=== PATIENT | male | born 1955 | race Caucasian/White ===

== ENCOUNTER 2022-06-03 08:19 | Inpatient (IN) ==
--- NOTE | 2022-05-13 16:24 | PAT Medication Instructions ---
Medication Instructions Date of Service May 13, 2022 Home Medications aspirin 81 mg chewable tablet 81 mg PO QAM cholecalciferol (vitamin D3) 25 mcg (1,000 unit) tablet (Vitamin D3) 25 mcg PO QAM losartan 100 mg tablet 150 mg PO QAM [id number]-[id number] 250 mg-dha 90 mg-epa 160 nz-yuti-wiyj-zeax capsule (Ocuvite Adult 50 Plus) 1 cap PO QAM ASK your prescriber and surgeon aspirin 81 mg chewable tablet 81 mg PO QAM STOP taking 2 weeks before surgery rblmlmyb-hdc- 250 mg-dha 90 mg-epa 160 ez-tdcl-ctrj-zeax capsule (Ocuvite Adult 50 Plus) 1 cap PO QAM DO NOT take the morning of surgery cholecalciferol (vitamin D3) 25 mcg (1,000 unit) tablet (Vitamin D3) 25 mcg PO QAM losartan 100 mg tablet 150 mg PO QAM Other Notes NOTHING TO EAT OR DRINK AFTER MIDNIGHT. If you have any questions please call us at [phone] or [phone] or [phone] or [phone]
--- NOTE | 2022-05-20 13:20 | Anesthesiology Consultation ---
Date of Service May 20, 2022 Assessment & Plan (1) Encounter for pre-operative examination: COVID screening: Per assessment on 05/20: No known COVID-19 positive contacts or current COVID-19 related symptoms. Travel screen negative. At surgeon discretion if preop Covid testing being done. Chart Review Chart Review: Acceptable Risk for Surgery and Patient seen in Pre Admission Testing Teaching & Discussion Pre-Anesthesia Teaching/Discussion Notes: Instructed NPO after midnight before surgery,except medications with 15 cc of water. Medication instructions provided according to the PAT guidelines. History Surgery Operation Date: 06/03/22 07:45 Proposed Procedures p L3-L5 Decompression and Fusion, Spinal Cord Monitoring - Armani Ahumada, Height/Weight Height: 5 ft 6 in Weight: 117.2 kg Allergies Allergy/AdvReac Type Severity Reaction Status Date / Time No Known Drug Allergies Allergy Verified 05/08/22 13:42 Medications Home Medications Medication Instructions Recorded Confirmed Last Taken aspirin 81 mg chewable tablet 81 mg PO QAM 05/08/22 05/08/22 Unknown cholecalciferol (vitamin D3) 25 25 mcg PO QAM 05/08/22 05/08/22 Unknown mcg (1,000 unit) tablet (Vitamin D3) losartan 100 mg tablet 150 mg PO QAM 05/08/22 05/08/22 Unknown rxahostg-lvo- 250 mg-dha 90 1 cap PO QAM 05/08/22 05/08/22 Unknown mg-epa 160 un-ytpv-scww-zeax capsule (Ocuvite Adult 50 Plus) Past Medical History Medical History History of COVID-19 Dx 08/2021, symptoms at time: headache, fever, cough > resolved Hypertension Exercise / Class Metabolic Activity II 4-5 Yardwork/Stairs/Walk up hill (one FS (no CP, no SOB)) Past Surgical History Surgical History History of total left knee replacement Hx of arthroscopic knee surgery R/L (multiple) Hx of colonoscopy Hx of tonsillectomy Past Anesthesia History No Family Hx of Anesthesia Complications and Other (Heart racing with remote anesthesia emergence) History of PONV No Hx of PONV and No Hx of Motion Sickness Social History Smoking Status: Former smoker Do You Dip or Chew Tobacco: No (only as teenager) Smoking End Date: Quit (only use as teenager) Hx Alcohol Use: Yes Alcohol type: wine alcohol intake frequency: holidays/special occasions only Hx Substance Use: No substance use type: does not use Review of Systems Patient denies chest pain, shortness of breath, dyspnea on exertion, fever, chills, cough, wheezing, palpitations. Physical Exam Vital Signs VITALS BP 131/86 P 87 TEMP 98.4 SP02 95%RA RESP 16 PHYSICAL Full cervical extension range of motion. Full TMJ range of motion. TMD 4 finger breaths Mallampati Score 2 Dentition: intact, + crowns Lungs: clear throughout to auscultation Cardiac: regular rate and rhythm, no murmurs noted Spine: normal Carotid arteries: negative bruit Extremities: no edema Thick neck Lab Results Anesthesia Preop Results Results Anesthesia Widget: WBC 10.41 K/ul (4.8-10.8) 05/20/22 Hgb 16.3 g/dl (14.0-18.0) 05/20/22 Hct 47.0 % (40.1-51.0) 05/20/22 Plt 386 K/uL (130-400) 05/20/22 Na 138 mmol/L (136-145) 05/20/22 K 3.7 mmol/L (3.5-5.1) 05/20/22 Cl 99 mmol/L (98-107) 05/20/22 CO2 29 mmol/L (21-32) 05/20/22 BUN 16 mg/dl (6-23) 05/20/22 Creat 0.90 mg/dl (0.6-1.4) 05/20/22 Glucose Level 84 mg/dl (70-99(Fasting)) 05/20/22 PT 11.1 Seconds (9.0-12.0) 05/20/22 PTT 31.0 Seconds (21.0-31.0) 05/20/22 INR 1.0 (0.9-1.1) 05/20/22 HA1c 6.0 % (4.5-5.6) H 05/20/22 Urine Color Yellow 05/20/22 Urine Appearance Clear (Clear) 05/20/22 Urine pH 5.5 (4.5-7.5) 05/20/22 Urine Specific [place] 1.021 (1.000-1.030) 05/20/22 Urine Protein Negative (Negative) 05/20/22 Urine Glucose (UA) Negative (Negative) 05/20/22 Urine Ketones 1+ (Negative) H 05/20/22 Urine Blood Negative (Negative) 05/20/22 Urine Nitrite Negative (Negative) 05/20/22 Urine Bilirubin Negative (Negative) 05/20/22 Urine Urobilinogen Negative (Negative) 05/20/22 Urine Leukocyte Esterase Negative (Negative) 05/20/22 Blood Type O Positive 05/20/22 Antibody Screen NEGATIVE 05/20/22 Testing Electrocardiogram Date: 05/20/22 NSR at 68bpm. COVID-19 Risk Screen Screening Information COVID-19 Screen Date: 05/20/22 Exposure 21 Days Family/Household +COVID Last 21 Days: No Exposure 10 Days Any COVID Exposure Last 10 Days: No Symptoms Last 10 Days Experienced COVID Sx Last 10 Days: No + COVID 0-90 Days COVID + in Last 0-90 Days: No
[~2022-06-03 08:19] MED LIST: ACETAMINOPHEN 500 MG TAB PO SCH; CeleBREX 200 MG CAP PO SCH; GABAPENTIN 600 MG DOSE PO SCH; LR 15ML/HR IV SCH; MIDAZOLAM HCL 1 MG/ML 2ML VIAL ONE; ceFAZolin 2000MG 2,000 MG/15 ML SYR IV SCH; fentaNYL citrate 100 MCG/2 ML VIAL ONE
[2022-06-03] MEDS ORDERED: ATROPINE SULFATE 0.1 MG/ML 10ML SYR IV PRN (10:05)
[2022-06-03] MEDS ORDERED: ePHEDrine sulfate 50 MG/ML AMP IV PRN (10:05)
[2022-06-03] MEDS ORDERED: ONDANSETRON INJ 2 MG/ML 2 ML VIAL IV PRN ×2 (10:05→14:04)
--- NOTE | 2022-06-03 10:19 | History & Physical Bridge Note ---
Date of Service June 03, 2022 History & Physical Bridge Note I have examined the patient, reviewed the History & Physical and in the interval since the performance of the History & Physical I have noted the following changes of clinical significance: no changes noted
--- NOTE | 2022-06-03 10:20 | History & Physical Report ---
Date of Service June 03, 2022 Assessment & Plan (1) Neurogenic claudication due to lumbar spinal stenosis: Plan: L3-L5 decompression and fusion History of Present Illness Chief Complaint: Back and bilateral leg pain Primary Care Provider: Pedrito Banegas MD This is a 67-year-old male presents with chronic persistent back and bilateral leg pain. After failing extensive course of nonoperative care is here for surgical invention. Allergies Allergy/AdvReac Type Severity Reaction Status Date / Time No Known Drug Allergies Allergy Verified 06/03/22 08:58 Home Medications Medication Instructions Recorded Confirmed Type aspirin 81 mg chewable tablet 81 mg PO QAM 05/08/22 06/03/22 History cholecalciferol (vitamin D3) 25 25 mcg PO QAM 05/08/22 06/03/22 History mcg (1,000 unit) tablet (Vitamin D3) losartan 100 mg tablet 150 mg PO QAM 05/08/22 06/03/22 History lipxfjgf-vnq-myhhg7 250 mg-dha 90 1 cap PO QAM 05/08/22 06/03/22 History mg-epa 160 mo-gazc-hpvy-zeax capsule (Ocuvite Adult 50 Plus) amlodipine benzoate 5 PO DAILY 06/03/22 History Past Med/Surg History Medical History History of COVID-19 Dx 08/2021, symptoms at time: headache, fever, cough > resolved Hypertension Surgical History History of total left knee replacement Hx of arthroscopic knee surgery R/L (multiple) Hx of colonoscopy Hx of tonsillectomy Social History Smoking Status: Former smoker Smoking End Date: Quit (only use as teenager); Second Hand Exposure: No; Do You Dip or Chew Tobacco: No (only as teenager); Tobacco Cessation Education Requested by Patient: No Hx Alcohol Use: Yes Alcohol type: wine Hx Substance Use: No Preferred Language: Amharic Communication Ability: Effective Director Telemetry Required: No Beliefs That Will Affect Care: None Current Living Situation: Spouse Other Information That Helps Us Care for You: No Feels Safe at Home: Yes Safety Concerns: Feels Safe At This Time Assistive Devices: None Physical Exam Physical Exam: Patient is alert and oriented Heart regular rhythm Lungs clear Results & Data Results & Data ([facility]) Vital Signs (Past 12 Hours) Vital Signs Temp Pulse Resp BP Pulse Ox O2 Del Method 06/03/22 09:04 36.7 C 91 H 20 138/90 94 Room Air
[2022-06-03] MEDS ORDERED: BUPIVACAINE/EPINEPHRINE 0.25% 1:200,000 30 ML VIAL ONE (10:30)
[2022-06-03] MEDS ORDERED: ceFAZolin 330 MG/ML 1 GM VIAL ONE (10:30)
[2022-06-03] MEDS ORDERED: HYDROmorphone INJ 2 MG/ML SYR/VIAL ONE (11:17)
[2022-06-03] MEDS ORDERED: ROCURONIUM BROMIDE 10 MG/ML 5 ML VIAL IV ONE (11:28)
[2022-06-03] MEDS ORDERED: GLYCOPYRROLATE 0.2 MG/ML VIAL ONE (11:28)
[2022-06-03] MEDS ORDERED: LIDOCAINE 2% MPF LOCAL 5 ML VIAL INFIL ONE (11:28)
[2022-06-03] MEDS ORDERED: LARYING-O-JET KIT (LTA) ONE (11:28)
[2022-06-03] MEDS ORDERED: DEXAMETHASONE SOD INJ 4 MG/ML VIAL ONE (11:28)
[2022-06-03] MEDS ORDERED: NEOSTIGMINE METHYLSULFATE 1 MG/ML 10ML VIAL ONE (11:28)
[2022-06-03] MEDS ORDERED: ONDANSETRON INJ 2 MG/ML 2 ML VIAL ONE (11:28)
[2022-06-03] MEDS ORDERED: PHENYLEPHRINE 100MCG/ML 5ML SYR ONE (11:28)
[2022-06-03] MEDS ORDERED: PROPOFOL IV EMULSION 10 MG/ML 20 ML VIAL IV ONE (11:28)
[2022-06-03] MEDS ORDERED: ePHEDrine sulfate 50 MG/ML SYR ONE (11:28)
[2022-06-03] MEDS ORDERED: FLOSEAL HEMOSTATIC MATRIX 10ML TOP ONE (11:47)
--- NOTE | 2022-06-03 12:40 | Operative Report ---
Post Operative Report Pre & Post Diagnosis Operation Date: 06/03/22 10:05 Pre-Op Diagnosis: Neurogenic claudication due to lumbar spinal stenosis L3-L5 Lumbar spinal stenosis L3-L4 L4-5. Morbid obesity Post-Op Diagnosis: Same I identified the patient and participated in the time-out.: Yes Procedure Operation Date: 06/03/22 10:05 Actual Procedures #1 lumbar compression with bilateral medial facetectomies and foraminotomies L2- L3, L3-L4 and L4-5. #2 posterior spinal fusion L3-L5. #3 placement posterior instrumentation L3-L5. #4 interbody fusion L3-L4 L4-5. #5 placement of Spira 14 x 26 mm cage at L3-L4 and L4-L5. #6 placement locally harvested morselized autograft in the posterior gutters. #7 placement of I factor combined with V toss in the interbody space and posterior lateral gutters. Surgeon Armani Ahumada, DO Supervisor [facility] Freda Shoemaker Estimated Blood Loss 370 Findings See Below Patient is 5 foot 6 inches tall weighing over 117 kg with a BMI in excess of 41. Patient's body was did contribute to significant technical difficulty required deepest retractors and longer instruments in order to perform his procedure. This had at least 50% increased operative time. Specimens None Indications This is a 67-year-old male who presents with bulge diagnosis after failed course of nonoperative care is here for surgical invention. Description of Procedure Patient was met with identified informed consent obtained. Patient was then taken to the operative suite underwent a patient placed in a prone position on the Tu table on top of the Luis Carlos frame. All bony prominences well-padded eyes inspected to ensure no external pressure placed upon them. This point the lumbar spine was prepped and draped in normal sterile fashion. Sharp dissection with the assistance of Bovie cartilage from down to and exposing the lamina and transverse processes of L3-L4-L5 bilaterally. Obvious bilateral pars defect at L3 and L4 was noted. A complete laminectomy of L4 for L3 and partial laminectomy of L2 was performed including bilateral medial facetectomies and foraminotomies addressing all spinal stenosis. Pedicle screws were then placed at L3 L4-5 bilaterally with assistance of fluoroscopy and the properly sized vernóica placed. By way of entrance foraminal approach and right a complete discectomy of L4-L5 was performed endplates curetted to subcortical bleeding bone and a 13 x 26 mm Spira cage filled I factor tapped in position. Then proceeded to L3-L4 and again by way of a transforaminal approach on the right complete discectomy performed endplates curetted to subcortical bleeding bone and again a 13 x 26 mm spiral cage filled with I factor tapped in position. The rods were then cut locked into final position bilaterally for the transverse processes of L3 L4-5 burred to subcortical bleeding bone. I factor model V toss and locally harvested morselized autograft was placed in the posterior gutters. 15 round LAILA drain inserted. The incision was then closed with 1 Vicryl in the fascia 2-0 Vicryl subcutaneously and 4 Monocryl for final skin closure. Steri-Strip sterile dressings placed. Patient waken taken to PACU in stable condition. Please note spinal cord monitoring was utilized at the procedure no changes noted. Lastly Freda Shoemaker was present out the entire procedure involved the patient positioning complex portions of the surgery and fascial closure. I attest to the content of the Intraoperative Record and any orders documented therein. Any exceptions are noted below.
[2022-06-03] MEDS: fentaNYL citrate 100 MCG/2 ML VIAL IV PRN ×4 (13:09→13:24)
--- NOTE | 2022-06-03 13:33 | Anesthesiology Progress Note ---
Date of Service June 03, 2022 Anesthesia Post Procedure Vital Signs Vital Signs: Temp Pulse Resp BP Pulse Ox O2 Del Method O2 Flow Rate 06/03/22 13:25 76 16 136/83 99 Nasal Cannula 4 06/03/22 13:15 84 18 148/93 H 99 Oxymask 5 06/03/22 13:05 82 18 157/97 H 100 Oxymask 5 06/03/22 12:55 86 18 131/97 99 Oxymask 5 06/03/22 12:49 98.1 F 90 18 169/98 H 98 Oxymask 5 06/03/22 09:04 98.1 F 91 H 20 138/90 94 Room Air Transfer of Care Handoff Completed per policy Notes Mental Status: alert / awake / arousable and participated in evaluation Patient Amnestic to Procedure: Yes Nausea / Vomiting: adequately controlled Pain: adequately controlled Airway Patency, RR, SpO2: stable & adequate BP & HR: stable & adequate Hydration State: stable & adequate Anesthetic Complications: no major complications apparent and Pt Satisfied with anesthetic care
[2022-06-03] MEDS ORDERED: METOCLOPRAMIDE HCL INJ 5 MG/ML 2 ML VIAL IV PRN (14:04)
[2022-06-03] MEDS ORDERED: SOD PHOSPHATE/SOD BIPHOSPHATE ENEMA 132 ML BTL PR PRN (14:04)
[2022-06-03] MEDS ORDERED: ALUMINUM/MAGNESIUM SUSP 30 ML UDC PO PRN (14:04)
[2022-06-03] MEDS ORDERED: oxyCODONE HCL IR 5 MG TAB (IMMEDIATE RELEASE) PO PRN (14:04)
[2022-06-03] MEDS ORDERED: HYDROmorphone INJ 1 MG/ML SYRINGE IV PRN (14:04)
[2022-06-03] MEDS ORDERED: PROMETHAZINE HCL 12.5 MG in SODIUM CHLORIDE 0.9% 50 ML IV PRN (14:04)
[2022-06-03] MEDS ORDERED: hydrOXYzine HCl 25 MG TAB PO PRN (14:04)
[2022-06-03] MEDS ORDERED: MAGNESIUM HYDROXIDE SUSP 30 ML UDC PO PRN (14:04)
[2022-06-03] MEDS ORDERED: ACETAMINOPHEN 1,000 MG/100 ML VIAL IV PRN (14:04)
[2022-06-03] MEDS ORDERED: HYDROmorphone INJ 0.5 MG/0.5 ML SYR IV PRN (14:04)
[2022-06-03] MEDS ORDERED: LORazepam 0.5 MG in SYRINGE 0 ML IV PRN (14:04)
[2022-06-03] MEDS ORDERED: FAMOTIDINE 20 MG TAB PO PRN (14:04)
[2022-06-03] MEDS ORDERED: ONDANSETRON 4 MG OD TAB PO PRN (14:04)
[2022-06-03] MEDS ORDERED: traMADol HCL 50 MG TABLET PO PRN (14:04)
[2022-06-03] MEDS ORDERED: NALOXONE HCL 0.4 MG/1 ML VIAL/CARP IV PRN (14:04)
[2022-06-03] MEDS ORDERED: bisacodyL 10 MG SUPP PR PRN (14:04)
[2022-06-03] MEDS ORDERED: diphenhydrAMINE Capsule 25 MG CAP PO PRN (14:04)
[2022-06-03] MEDS ORDERED: LORazepam 0.5 MG TAB PO PRN (14:04)
[2022-06-03] MEDS: LACTATED RINGER'S 1,000 ML IV SCH ×2 (14:38→20:39)
--- NOTE | 2022-06-03 15:31 | Fluoroscopy Report ---
FL lumbar spine 2-3V CLINICAL HISTORY: L3-L5 DECOMP/FUSION COMPARISON STUDY: None. FLUOROSCOPY TIME: 25 seconds. FINDINGS: 2 fluoroscopic spot images of the lumbar spine demonstrate posterior decompression and fusi on from L3 through L5 with pedicle screws and rods. The hardware appears intact. Disc spacers are in place. Small radiopaque pledget on the lateral view at the L3-L4 level is noted. IMPRESSION: Fluoroscopic assistance provided for L3-L5 posterior decompression and fusion. ACT 112: Negative or not required by law. Electronically signed by: Bruce Tate M.D. 06/03/2022 3:29 PM
[2022-06-03] MEDS ORDERED: COUGH DROP (SUGAR FREE) LOZ 24 LOZ/1 BOX BUCCAL PRN (15:40)
[2022-06-03] MEDS ORDERED: Nursing to Pharmacy Communication SCH (15:45)
[2022-06-03] MEDS: ceFAZolin 2000MG 2,000 MG/15 ML SYR IV SCH (18:12)
--- NOTE | 2022-06-03 18:26 | Consultation ---
Date of Consultation June 03, 2022 Assessment & Plan (1) Neurogenic claudication due to lumbar spinal stenosis: (2) Hypertension: (3) History of tobacco use: (4) History of COVID-19: Plan Patient underwent L3-L5 decompression and fusion surgery with Dr. Ahumada. Patient was ambulating in the chahal when I visited with him in no apparent distress. Pain control wound care anticoagulation and activities managed by Ortho. Neurogenic claudication due to lumbar spinal stenosis: POD#0 s/p L3-L5 decompression and fusion with Dr. Ahumada EBL: 370mL Monitor H&H; Last Hgb 16.3 on 05/20; will trend in AM Per ortho for pain control, wound care, anticoagulation and activities Continue incentive spirometry PT/OT; ambulating with a walker. Hypertension: Patient takes amlodipine, losartan; continue Normotensive postop History of tobacco use No cough Patient denies need for nicotine patch History of COVID-19: No recurrent symptoms noted No hypoxia Disposition: PCP: Dr. Banegas VTE prophylaxis: Teds and SCDs CODE STATUS: Full code [facility] Please do not hesitate to contact us 10/03 via [place] text if we can be of assistance. This patient was seen in collaboration with Dr. Peralta. Supervising Physician Co-Signing Physician Notes 67-year-old gentleman with PMH of HTN, COVID-19 infection, low back pain with bilateral lower extremity radiculopathy was seen and examined at bedside as a me dical consult status post L3-L5 decompression and fusion by Dr. Ahumada on 06/03/2022. Patient was sitting comfortable at bedside, hemodynamically stable, reports improvement in his bilateral lower extremity radiculopathy, reports pain at operative site under control. Patient had liquid diet dinner, patient reports tolerating diet. Patient has not moved bowel or gas, continue to monitor. PT OT when able, DVT prophylaxis and pain management per primary team. Incentive spirometer. Upon examination: GENERAL: Alert and oriented x3. NAD, on RA. HEENT: No pallor, no icterus. Pupils equal, round and reactive to light. Oral mucosa moist. NECK: No JVD, no neck masses. HEART: S1 and S2 heard. Regular rate and rhythm. No murmur, no gallop. RESPIRATORY SYSTEM: Normal AP diameter. No accessory muscle use. No wheezing, no crackles. ABDOMEN: Soft, bowel sounds present, nontender, no distention. CENTRAL NERVOUS SYSTEM: No facial droop. Speech is clear. Obeys simple commands. Moves extremities. EXTREMITIES: No edema, no erythema seen. Low back with clean dressing with minimal soakage, LAILA drain with moderate serosanguineous collection noted. I have seen and examined the patient and have discussed the case with the provider above. I agree with the assessment and plan as stated. History of Present Illness Requesting Physician: Dr. Ahumada Reason for Consultation: post operative medical management Attending Physician: Armani Ahumada, DO History of Present Illness Mr. Mazin Brennan is a 67-year-old that presented to the [facility] for an elective L3-L5 decompression and fusion surgery under the care of Dr. Ahumada after failing conservative therapies. The patient has a past medical history that includes hypertension, history of COVID- 19, and is a previous smoker. When I examined the patient he was ambulating in the hallway with a walker in no apparent distress. He is awake alert oriented and able to answer all questions appropriately. He denies any numbness or tingling and currently denies pain. He reports that he feels that he can walk the best he has been able to in the past 3 years. The patient does have a LAILA drain postoperatively draining bright red blood. [facility]. Please see assessment and plan for further details. Allergies Allergy/AdvReac Type Severity Reaction Status Date / Time No Known Drug Allergies Allergy Verified 06/03/22 08:58 Home Medications Medication Instructions Recorded Confirmed Type aspirin 81 mg chewable tablet 81 mg PO QAM 05/08/22 06/03/22 History cholecalciferol (vitamin D3) 25 25 mcg PO QAM 05/08/22 06/03/22 History mcg (1,000 unit) tablet (Vitamin D3) losartan 100 mg tablet 150 mg PO QAM 05/08/22 06/03/22 History ikgfvpyc-hva-ryulx1 250 mg-dha 90 1 cap PO QAM 05/08/22 06/03/22 History mg-epa 160 gy-nxcx-izge-zeax capsule (Ocuvite Adult 50 Plus) amlodipine benzoate 5 mg PO DAILY 06/03/22 06/03/22 History Patient History Medical History (Updated 06/03/22 @ 19:45 by JUAN Gonzalez) History of COVID-19 Dx 08/2021, symptoms at time: headache, fever, cough > resolved History of tobacco use Hypertension Surgical History History of total left knee replacement Hx of arthroscopic knee surgery R/L (multiple) Hx of colonoscopy Hx of tonsillectomy Social History Smoking Status: Former smoker Smoking End Date: Quit (only use as teenager); Second Hand Exposure: No; Do You Dip or Chew Tobacco: No (only as teenager); Tobacco Cessation Education Requested by Patient: No Hx Alcohol Use: Yes Alcohol type: wine Hx Substance Use: No Preferred Language: Icelandic Communication Ability: Effective Chief Concierge Required: No Beliefs That Will Affect Care: None Current Living Situation: Spouse Other Information That Helps Us Care for You: No Feels Safe at Home: Yes Safety Concerns: Feels Safe At This Time Assistive Devices: None Review of Systems Review of Systems: Neuro: (-) Falls, trauma, slurred speech HEENT: (-) JEFFERY, dizziness, dysphagia, visual or auditory changes CV: (-) CP, palpitations, swelling Resp: (-) SOB GI: (-) appetite changes, N/V/D, bowel changes : (-) urinary changes Skin: (-) rashes Psych: (-) anxiety, depression Physical Exam Physical Exam: Neuro: AAOx4, PERRLA, no aphagia, memory changes, CNII-XII grossly intact HEENT: head normocephalic, moist mucus membranes CV: S1/S2, (-) M/G/R, (-) edema, cap refill < 3 seconds Resp: Lungs CTA in all zapata. On RA GI: Abdomen S/NT/ND, Ax4 bowel sounds, (-) CVA tenderness Musculoskeletal: 5/5 B/L UE strength, 5/5 B/L LE strength. No gait disturbance. ambulating with a walker. Has a LAILA draining kiara red blood Skin: (-) rashes , (-) erythema. Psych: euthymic mood Results & Data ([facility]) Vital Signs (Past 12 Hours) Vital Signs Temp Pulse Pulse Resp BP Pulse Ox O2 Del Method 06/03/22 16:57 36.5 C 86 18 113/77 98 Room Air 06/03/22 15:53 36.4 C L 91 H 18 124/83 95 Nasal Cannula 06/03/22 14:55 37 C 85 18 116/78 98 Nasal Cannula 06/03/22 13:55 Nasal Cannula 06/03/22 14:25 89 18 132/77 95 Nasal Cannula 06/03/22 13:55 37.0 C 78 18 122/80 96 Nasal Cannula 06/03/22 13:35 36.6 C 86 18 148/82 H 96 Nasal Cannula 06/03/22 13:25 76 16 136/83 99 Nasal Cannula 06/03/22 13:15 84 18 148/93 H 99 Oxymask 06/03/22 13:05 82 18 157/97 H 100 Oxymask 06/03/22 12:55 86 18 131/97 99 Oxymask 06/03/22 12:49 36.7 C 90 18 169/98 H 98 Oxymask 06/03/22 09:04 36.7 C 91 H 20 138/90 94 Room Air O2 Flow Rate 06/03/22 16:57 06/03/22 15:53 2 06/03/22 14:55 2 06/03/22 13:55 3 06/03/22 14:25 3 06/03/22 13:55 3 06/03/22 13:35 2 06/03/22 13:25 4 06/03/22 13:15 5 06/03/22 13:05 5 06/03/22 12:55 5 06/03/22 12:49 5 06/03/22 09:04 Diagnostic Findings Lumbar Spine X-Ray 06/03/22 00:00 FL lumbar spine 2-3V CLINICAL HISTORY: L3-L5 DECOMP/FUSION COMPARISON STUDY: None. FLUOROSCOPY TIME: 25 seconds. FINDINGS: 2 fluoroscopic spot images of the lumbar spine demonstrate posterior decompression and fusion from L3 through L5 with pedicle screws and rods. The hardware appears intact. Disc spacers are in place. Small radiopaque pledget on the lateral view at the L3-L4 level is noted. IMPRESSION: Fluoroscopic assistance provided for L3-L5 posterior decompression and fusion. ACT 112: Negative or not required by law. Electronically signed by: Bruce Tate M.D. 06/03/2022 3:29 PM
[2022-06-03] MEDS: DOCUSATE SODIUM/SENNA 50/8.6MG TAB PO SCH (20:37)
[2022-06-04] MEDS: ceFAZolin 2000MG 2,000 MG/15 ML SYR IV SCH (02:51)
[2022-06-04] MEDS: LACTATED RINGER'S 1,000 ML IV SCH (04:53)
[2022-06-04] MEDS: ACETAMINOPHEN 500 MG TAB PO PRN ×2 (06:16→18:00)
[2022-06-04] MEDS: POLYETHYLENE (MIRALAX) 17 GM PACK PO SCH ×4 (06:17→23:56)
[2022-06-04 06:42] LABS: Basophils # (auto) 0.03 K/uL (0-0.2); Basophils % (auto) 0.2 %; Eosinophils # (auto) 0.01 K/uL (0-0.50); Eosinophils % (auto) 0.1 %; Hematocrit (blood only) 40.3 % (40.1-51.0); Hemoglobin 13.9 g/dl (14.0-18.0); Immature Granulocytes % (auto) 0.5 %; Lymphocytes # (auto) 1.93 K/uL (1.2-3.4); Lymphocytes % (auto) 10.6 %; Mean Corpuscular Hgb Conc 34.5 g/dL (32.0-36.0); Mean Corpuscular Volume 89.8 fL (80.0-100.0); Mean Platelet Volume 10.7 fL (9.4-12.4); Monocytes # (auto) 1.21 K/uL (0.24-0.82); Monocytes % (auto) 6.6 %; Neutrophils # (auto) 14.99 K/uL (1.4-6.5); Platelet Count 341 K/uL (130-400); RDW Coefficient of Variation 11.6 % (11.5-14.5); RDW Standard Deviation 37.4 fL (36.4-46.3); Red Blood Count 4.49 M/uL (4.63-6.08); White Blood Count 18.27 K/ul (4.8-10.8)
[2022-06-04 07:08] LABS: BUN Creatinine Ratio 24.7 (10-20); Calcium 9.8 mg/dl (8.5-10.1); Creatinine Clr Calc Pharmacy 115.1 ml/min; Est GFR (African American) 110.4 ml/min; Est GFR (Non-African American) 95.2 ml/min; Potassium 4.4 mmol/L (3.5-5.1)
[2022-06-04] MEDS: dexAMETHasone 6 MG in SYRINGE 0 ML IV SCH (08:41)
[2022-06-04] MEDS: LOSARTAN POTASSIUM 50 MG TAB PO SCH (08:41)
[2022-06-04] MEDS: ASPIRIN 81 MG ECTAB PO SCH (08:42)
[2022-06-04] MEDS: CHOLECALCIFEROL 1,000 UNITS 25 MCG TAB PO SCH (08:42)
--- NOTE | 2022-06-04 11:32 | Orthopedic Progress Note ---
Date of Service June 04, 2022 Assessment & Plan (1) Neurogenic claudication due to lumbar spinal stenosis: Plan: This we will continue physical therapy monitor his LAILA output hopefully discharge home in next few days. Admission and Anticipated Discharge Date Admission Date: June 03, 2022 Subjective Back pain controlled leg symptoms markedly improved Physical Exam Physical Exam: Patient is up and ambulating halls. Skin strength testing. Pe ers comfortable. Results & Data ([facility]) Vital Signs (Past 12 Hours) Vital Signs Temp Pulse Resp BP BP Pulse Ox O2 Del Method 06/04/22 07:11 36.6 C 72 18 138/85 99 Room Air 06/04/22 05:00 37 C 71 16 131/67 97 Room Air 06/04/22 01:00 36.8 C 67 16 152/80 H 96 Room Air
[2022-06-04] MEDS: ZINC SULFATE 220 MG CAPSULE PO SCH (12:01)
--- NOTE | 2022-06-04 15:59 | Hospitalist Progress Note ---
Date of Service June 04, 2022 Assessment & Plan (1) Neurogenic claudication due to lumbar spinal stenosis: (2) Hypertension: (3) History of tobacco use: (4) History of COVID-19: Plan Patient underwent L3-L5 decompression and fusion surgery with Dr. Ahumada. Patient was ambulating in the chahal when I visited with him in no apparent distress. Pain control wound care anticoagulation and activities managed by Ortho. Neurogenic claudication due to lumbar spinal stenosis: POD#1 s/p L3-L5 decompression and fusion with Dr. Ahumada EBL: 370mL Monitor H&H; Last Hgb 16.3 on 05/20; will trend in AM Per ortho for pain control, wound care, anticoagulation and activities Has been doing much better following surgery His radiculopathy pain is resolved Blood counts remain unremarkable Continue PT and OT as per Ortho Likely stable Hypertension: Patient takes amlodipine, losartan; continue Normotensive postop History of tobacco use No cough Patient denies need for nicotine patch History of COVID-19: No recurrent symptoms noted No hypoxia Disposition: PCP: Dr. Banegas VTE prophylaxis: Teds and SCDs CODE STATUS: Full code Admission and Anticipated Discharge Date Admission Date: June 03, 2022 Subjective 06/04/2022 The patient was seen and examined in medical floor Is a status post L3-L5 decompression fusion Has been feeling much better and except minimal back pain no other symptoms Review of Systems Review of Systems: All systems reviewed and are unremarkable except as noted below Physical Exam Physical Exam: Sitting on a chair without any acute distress Constitutional: well developed, well nourished and + obese; not ill appearing Eyes: PERRL, conjunctivae normal, anicteric sclerae ENMT: external ear and nose normal, oropharynx normal Neck: trachea midline, no thyromegaly Respiratory: no respiratory distress Auscultation: lungs clear to auscultation bilaterally Cardiovascular: Rate/Rhythm: regular rate and regular rhythm; not tachycardic Heart Sounds: normal S1 and normal S2; no murmur Extremities: no edema Gastrointestinal (Abdomen): Inspection/Auscultation: normal bowel sounds; abdomen not distended Percussion/Palpation: abdomen soft; abdomen nontender Musculoskeletal: No acute arthritis in any joint Neurologic: Alert, awake and oriented x3. No focal sensory or no motor deficit appreciated Lymphatic: no cervical or axillary lymphadenopathy Results & Data Results & Data ([facility]) Vital Signs (Past 12 Hours) Vital Signs Temp Pulse Resp BP BP Pulse Ox O2 Del Method 06/04/22 13:52 37.1 C 87 18 132/84 95 06/04/22 07:11 36.6 C 72 18 138/85 99 Room Air 06/04/22 05:00 37 C 71 16 131/67 97 Room Air Laboratory Results Short CBC 06/04/22 Range/Units 06:25 WBC 18.27 H (4.8-10.8) K/ul Hgb 13.9 L (14.0-18.0) g/dl Hct 40.3 (40.1-51.0) % Plt Count 341 (130-400) K/uL BMP 06/04/22 06:25 Sodium 134 L Potassium 4.4 Chloride 97 L Carbon Dioxide 31 BUN 19 Creatinine 0.77 Glucose 133 H Calcium 9.8 Medications Administered Current Inpatient Medications Acetaminophen (Acetaminophen 500 Mg Tab) 1,000 mg PO Q8H PRN PRN Reason: MILD Pain Scale 1,2,3 & Pre PT Stop: 07/03/22 14:03 Last Admin: 06/04/22 06:16 Dose: 1,000 mg Al Hydrox/Mg Hydrox/Simethicone (Aluminum/Magnesium Susp 30 Ml Udc) 30 ml PO Q6H PRN PRN Reason: Dyspepsia Stop: 07/03/22 14:03 Aspirin (Aspirin 81 Mg Ectab) 81 mg PO QAM [facility] Stop: 07/04/22 08:59 Last Admin: 06/04/22 08:42 Dose: 81 mg Bisacodyl (Bisacodyl 10 Mg Supp) 10 mg MT DAILY PRN PRN Reason: Constipation Stop: 07/03/22 14:03 Diphenhydramine HCl (Diphenhydramine Capsule 25 Mg Cap) 25 mg PO Q6H PRN PRN Reason: Allergic Rhinitis/Insomnia Stop: 07/03/22 14:03 Famotidine (Famotidine 20 Mg Tab) 20 mg PO Q12H PRN PRN Reason: Dyspepsia Stop: 07/03/22 14:03 Hydromorphone HCl (Hydromorphone Inj 0.5 Mg/0.5 Ml Syr) 0.5 mg IV Q3H PRN PRN Reason: MODERATE Pain (Scale 4,5,6) & Pre PT Stop: 06/17/22 14:03 Last Admin: 06/04/22 02:51 Dose: 0.5 mg Hydromorphone HCl (Hydromorphone Inj 1 Mg/Ml Syringe) 1 mg IV Q3H PRN PRN Reason: SEVERE Pain (Scale 7,8,9,10) Stop: 06/17/22 14:03 Hydroxyzine HCl (Hydroxyzine Hcl 25 Mg Tab) 25 mg PO Q8H PRN PRN Reason: Anxiety Stop: 07/03/22 14:03 Promethazine HCl 12.5 mg/ (Sodium Chloride) 50.5 mls @ 202 mls/hr IV Q6H PRN PRN Reason: Nausea &/or Vomiting Stop: 07/03/22 14:03 Lorazepam 0.5 mg/ Syringe 0.5 mls @ 2 mls/min IV Q8H PRN PRN Reason: Sedation/Anxiety Stop: 07/03/22 14:03 Dexamethasone 6 mg/ Syringe 1.5 mls @ 1 mls/min IV DAILY MARIN Stop: 06/06/22 09:02 Last Admin: 06/04/22 08:41 Dose: 1 mls/min Lorazepam (Lorazepam 0.5 Mg Tab) 0.5 mg PO Q8H PRN PRN Reason: Sedation/Anxiety Stop: 07/03/22 14:03 Losartan Potassium (Losartan Potassium 50 Mg Tab) 150 mg PO QAM MARIN Stop: 07/04/22 08:59 Last Admin: 06/04/22 08:41 Dose: 150 mg Magnesium Hydroxide (Magnesium Hydroxide Susp 30 Ml Udc) 30 ml PO Q24H PRN PRN Reason: Constipation Stop: 07/03/22 14:03 Menthol (Cough Drop (Sugar Free) Marcela 24 Marcela/1 Box) 1 marcela BUCCAL UD PRN PRN Reason: Cough Stop: 07/03/22 15:39 Last Admin: 06/03/22 15:51 Dose: 1 marcela Metoclopramide HCl (Metoclopramide Hcl Inj 5 Mg/Ml 2 Ml Vial) 10 mg IV Q6H PRN PRN Reason: Nausea &/or Vomiting Stop: 07/03/22 14:03 Naloxone HCl (Naloxone Hcl 0.4 Mg/1 Ml Vial/Carp) 0.1 mg IV Q5M PRN PRN Reason: Oversedation/Resp depression Stop: 07/03/22 14:03 Ondansetron HCl (Ondansetron Inj 2 Mg/Ml 2 Ml Vial) 4 mg IV Q6H PRN PRN Reason: Nausea &/or Vomiting Stop: 07/03/22 14:03 Ondansetron HCl (Ondansetron 4 Mg Od Tab) 4 mg PO Q6H PRN PRN Reason: Nausea Stop: 07/03/22 14:03 Oxycodone HCl (Oxycodone Hcl Ir 5 Mg Tab (Immediate Release)) 5 - 10 mg PO Q4H PRN PRN Reason: Pain & Pre PT Stop: 06/17/22 14:03 Polyethylene Glycol (Polyethylene (Miralax) 17 Gm Pack) 17 gm PO Q6 [facility] Stop: 07/04/22 05:59 Last Admin: 06/04/22 11:37 Dose: 17 gm Senna/Docusate Sodium (Docusate Sodium/Senna 50/8.6mg Tab) 2 tab PO HS [facility] Stop: 07/03/22 20:59 Last Admin: 06/03/22 20:37 Dose: 2 tab Sodium Biphosphate/Sodium Phosphate (Sod Phosphate/Sod Biphosphate Enema 132 Ml Btl) 132 ml MT ONE PRN PRN Reason: Constipation Stop: 07/03/22 14:03 Tramadol HCl (Tramadol Hcl 50 Mg Tablet) 50 - 100 mg PO Q4H PRN PRN Reason: Moderate-Severe pain & Pre PT Stop: 07/03/22 14:03 Vitamin D (Cholecalciferol 1,000 Units 25 Mcg Tab) 1,000 [facility] Stop: 07/04/22 08:59 Last Admin: 06/04/22 08:42 Dose: 1,000 units Zinc Sulfate (Zinc Sulfate 220 Mg Capsule) 220 mg PO QAM [facility] Stop: 07/04/22 11:29 Last Admin: 06/04/22 12:01 Dose: 220 mg
[2022-06-04] MEDS: DOCUSATE SODIUM/SENNA 50/8.6MG TAB PO SCH (19:41)
[2022-06-05] MEDS: ACETAMINOPHEN 500 MG TAB PO PRN ×2 (05:07→20:03)
[2022-06-05] MEDS: POLYETHYLENE (MIRALAX) 17 GM PACK PO SCH (05:08)
[2022-06-05 07:18] LABS: Basophils # (auto) 0.03 K/uL (0-0.2); Basophils % (auto) 0.2 %; Eosinophils # (auto) 0.01 K/uL (0-0.50); Eosinophils % (auto) 0.1 %; Hematocrit (blood only) 36.9 % (40.1-51.0); Hemoglobin 12.7 g/dl (14.0-18.0); Immature Granulocytes % (auto) 0.6 %; Lymphocytes # (auto) 3.05 K/uL (1.2-3.4); Lymphocytes % (auto) 18.3 %; Mean Corpuscular Hemoglobin 30.7 pg (25.0-34.0); Mean Corpuscular Hgb Conc 34.4 g/dL (32.0-36.0); Mean Corpuscular Volume 89.1 fL (80.0-100.0); Mean Platelet Volume 10.8 fL (9.4-12.4); Monocytes # (auto) 1.41 K/uL (0.24-0.82); Monocytes % (auto) 8.5 %; Neutrophils # (auto) 12.05 K/uL (1.4-6.5); Neutrophils % (auto) 72.3 %; Platelet Count 324 K/uL (130-400); RDW Coefficient of Variation 11.8 % (11.5-14.5); RDW Standard Deviation 37.8 fL (36.4-46.3); Red Blood Count 4.14 M/uL (4.63-6.08); White Blood Count 16.65 K/ul (4.8-10.8)
[2022-06-05 08:04] LABS: BUN Creatinine Ratio 24.7 (10-20); Calcium 9.4 mg/dl (8.5-10.1); Creatinine Clr Calc Pharmacy 104.3 ml/min; Est GFR (Non-African American) 91.4 ml/min; Potassium 3.9 mmol/L (3.5-5.1)
[2022-06-05] MEDS: LOSARTAN POTASSIUM 50 MG TAB PO SCH (08:13)
[2022-06-05] MEDS: ZINC SULFATE 220 MG CAPSULE PO SCH (08:13)
[2022-06-05] MEDS: ASPIRIN 81 MG ECTAB PO SCH (08:14)
[2022-06-05] MEDS: dexAMETHasone 6 MG in SYRINGE 0 ML IV SCH (08:14)
[2022-06-05] MEDS: CHOLECALCIFEROL 1,000 UNITS 25 MCG TAB PO SCH (08:14)
--- NOTE | 2022-06-05 08:21 | Orthopedic Progress Note ---
Date of Service June 05, 2022 Assessment & Plan (1) Neurogenic claudication due to lumbar spinal stenosis: Plan: Mr. Brennan is postoperative day 2 status post L3-5 decompression and instrumented fusion. He is doing great. We will continue physical therapy today. Maintain LAILA drain. Continue with pain control. Anticipate discharge home tomorrow. Admission and Anticipated Discharge Date Admission Date: June 03, 2022 Subjective Mr. Brennan is postoperative day 2 status post L3-5 decompression instrumented fusion. He is doing great. He has very little pain. Has some right foot numbness but the radicular leg pain has resolved. LAILA drain output last shift was 30 cc. He had a bowel movement. Yesterday in physical therapy ambling roughly 350 feet. H&H is morning are 12.7 and 36.9 respectively. Review of Systems Review of Systems: All systems reviewed & are unremarkable except as noted in HPI & below Physical Exam Physical Exam: Patient sitting up in a chair in no acute distress Alert and oriented x3 Lumbar dressing is clean dry intact with functioning LAILA drain Calf soft nontender bilaterally CHENG hose intact bilaterally Strength intact bilateral lower extremities y Results & Data ([facility]) Vital Signs (Past 12 Hours) Vital Signs Temp Pulse Resp BP Pulse Ox O2 Del Method 06/05/22 07:23 36.5 C 70 17 130/79 97 Room Air 06/05/22 01:00 36.8 C 72 18 136/84 97 Room Air 06/04/22 21:00 36.8 C 70 18 130/72 97 Room Air
--- NOTE | 2022-06-05 16:20 | Hospitalist Progress Note ---
Date of Service June 05, 2022 Assessment & Plan (1) Neurogenic claudication due to lumbar spinal stenosis: (2) Hypertension: (3) History of tobacco use: (4) History of COVID-19: Plan Neurogenic claudication due to lumbar spinal stenosis: POD#1 s/p L3-L5 decompression and fusion with Dr. Ahumada EBL: 370mL Monitor H&H; Last Hgb 16.3 on 05/20; will trend in AM Per ortho for pain control, wound care, anticoagulation and activities Has been doing much better following surgery His radiculopathy pain is resolved Blood counts remain unremarkable Continue PT and OT as per Ortho Likely stable 06/05 Patient stable overall Further management per orthopedic service Hypertension: Patient takes amlodipine, losartan Normotensive postop 06/05 Currently blood pressure is at goal We will continue to monitor If blood pressure above 140, will restart amlodipine History of tobacco use No cough Patient denies need for nicotine patch History of COVID-19: No recurrent symptoms noted No hypoxia Disposition: PCP: Dr. Banegas VTE prophylaxis: Teds and SCDs CODE STATUS: Full code Admission and Anticipated Discharge Date Admission Date: June 03, 2022 Subjective Follow-up for status post back surgery, etc. Seen resting in bed side chair, comfortable, in good spirits States he feels great overall Minimal discomfort over the surgical site, but otherwise very happy that his pain is much better and is ambulating well no chest pain, dyspnea, palpitations, dizziness No other symptom Review of Systems Review of Systems: all noted and negative except for above Physical Exam Physical Exam: General- oriented x 3, not in distress, speaks in sentences with no effort or accessory muscle use Eyes- anicteric Neck- no JVD Lungs- clear breath sounds bilaterally, no crackles or wheezing Heart- normal rate, regular rhythm; no murmurs Abdomen- normal bowel sounds, nondistended, soft, nontender Extremities-trace pretibial edema, no calf tenderness Neuro- alert, oriented x 3; no gross focal neurologic deficits Skin- warm & dry Results & Data Results & Data ([facility]) Vital Signs (Past 12 Hours) Vital Signs Temp Pulse Resp BP Pulse Ox O2 Del Method 06/05/22 07:23 36.5 C 70 17 130/79 97 Room Air
[2022-06-05] MEDS: DOCUSATE SODIUM/SENNA 50/8.6MG TAB PO SCH (20:04)
[2022-06-06] MEDS: ACETAMINOPHEN 500 MG TAB PO PRN (05:11)
--- NOTE | 2022-06-06 08:18 | Discharge Summary ---
Date of Service June 06, 2022 Admission HPI Per Admitting Provider This is a 67-year-old male presents with chronic persistent back and bilateral leg pain. After failing extensive course of nonoperative care is here for surgical invention. Principal Diagnosis Lumbar spinal stenosis with neurogenic claudication Discharge Data Allergies Allergy/AdvReac Type Severity Reaction Status Date / Time No Known Drug Allergies Allergy Verified 06/03/22 08:58 Consultations 06/03/22 14:04 Consult Hospitalist Routine Procedures Performed Operation Date: 06/03/22 10:05 Actual Procedures p L3-L5 Decompression and Fusion, Spinal Cord Monitoring(Not Applicable) - Armani Ahumada DO Ordered Studies 06/03/22 [place] lumbar spine 2-3V Routine Hospital Course (1) Neurogenic claudication due to lumbar spinal stenosis: Patient with lumbar decompression fusion tolerated this well was taken to the orthopedic floor postoperative. Postop day 1 is up and ambulating progressed to postop day 2 on postop day 3 pain was well controlled LAILA drain decreased probably. Excellent strength testing. Separately discharged home. Discharge orders and instructions from the chart for further view. Total Time Total Time Spent Total Time Spent (In Minutes): 20 minutes Discharge Plan Discharge Items Patient Disposition: Home - Self-Care Reason For Visit: Spinal Stenosis, Lumbar Region with Neurogenic Cla Discharge Diagnosis: Lumbar spinal stenosis with neurogenic claudication Activity: As commented below Non-emergency contact: Primary Care Provider Call non-emergency contact if: you have any medication questions Follow-up/Referrals: Pedrito Banegas MD [Primary Care Provider] - Diet: Regular Addtl Attending Provider Instructions: ACTIVITY RECOMMENDATIONS: SELF CARE INSTRUCTIONS AFTER THORACIC/LUMBAR FUSIONS 1. You may walk to your tolerance. It is good exercise for your legs and back. Expect some back and intermittent leg aches and pains. 2. You may perform "counter-top" level activities (make a sandwich, cece with a project, etc.). 3. No bending or lifting of more than 10 pounds or back twisting of any nature (roll like a log when turning in bed). 4. You may ride in a car for 20-30 minutes at a time. No driving until after your first visit with your doctor. 5. Frequent changes of position and restricting sitting to 30 minutes at a time will help limit the amount of back spasms and stiffness you may experience. 6. You may discontinue the use of ambulatory aids (cane, crutches, etc.) once your strength and confidence allow. 7. You may washerette machine operator the shower and let water strike your incision when you arrive home at least once daily. Do not take a tub bath, sit in a hot tub or go into a swimming pool until after your first recheck in the office. SPECIAL CARE INSTRUCTIONS: VERY IMPORTANT TO READ AND REVIEW A. Your surgical incision has been closed with a cosmetic suture under the skin that will dissolve in about 6 weeks. In 14 days, you can use a pair of clean scissors and cut the suture that is left outside of the skin at the ends of your incision. 1. The small skin tapes can be removed 7 days after surgery if they have not fallen off by that point. 2. You may keep the wound open to air as much as possible to promote healing after post-op day number 5 unless told otherwise by your doctor. 3. If you think the wound looks like it is becoming infected (redness or worsening drainage) and/or you are experiencing fever, chill or worsening back pain and muscle spasms, contact the office so that we may evaluate you as soon as possible. B. Complications are uncommon, but please contact us if you have any signs or symptoms of: 1. wound infection (fever higher than 102.5 degrees F, redness, separation of wound, drainage, or increasing pain from the incision) 2. blood clots in legs (pain, swelling, redness and warmth in legs) 3. urinary tract infection (fever higher than 102.5 degrees F, burning upon urination or increased frequency of urination) 4. nerve problems (inability to walk on your toes or heels, numbness, loss of bowel or bladder control) 5. any other symptoms that concern you C. Please call the office at if you have any concerns or questions about your operation or recovery. D. No smoking! Smoking drastically decreases the chance of a solid fusion. E. Do not take any anti-inflammatory medications (Indocin, Advil, Motrin, Aspirin, Naprosyn, etc.) as these may inhibit the chance of a solid fusion. Tylenol is okay to take for pain. MANAGING PAIN AFTER SPINAL SURGERY 1. Narcotic medication is intended for short-term use and will be provided for surgical pain. Surgical pain usually lasts for a period of 4-6 weeks. Narcotic medication includes Percocet, Vicodin, Darvocet, Tylenol #3 or Lortab. 2. Longer-term pain is more appropriately treated with non-narcotic medication such as Tylenol ES. 3. Muscle spasm is not appropriately treated with narcotics. Muscle relaxers such as Soma, Flexeril or Skelaxin can be used along with Tylenol ES. 4. Remember that we all live with some "aches and pains". This is not unusual or uncommon after an injury or as we get older. a. Back pain is expected and may include muscle spasms for 4 to 6 weeks after surgery. The pain should gradually improve. If the pain worsens for no apparent reason, please contact the office. b. Intermittent leg pain may also be experienced and should not be concerned about unless it worsens for no apparent reason. If so, please contact the office. 5. We will provide appropriate medication within the normal guidelines of their prescribed use. We will also be very cautious and aware of potential abuse and extended duration of patients' medication needs. a. Pain medications are for your comfort and to assist with sleep and rest so that the tissue can heal. They are not provided in order to return to normal activity and should not be used through the day. To do so or worsening pain at night can result from ongoing tissue damage and development of tolerance to the prescribed medicine. 6. Please allow 2-3 days to process refills. Prescriptions will not be mailed but must be picked up at the office. FOLLOW UP VISIT: Keep your scheduled follow-up appointment. Any questions, please call the office at . Pending Studies at Discharge: No Stand-Alone Forms: My [facility] My [place], Smoking Cessation Medications and DC Order Prescriptions: New oxycodone 5 mg tablet 5 mg PO Q6H PRN (Reason: pain, severe) Qty: 30 0RF tramadol 50 mg tablet 50 mg PO Q6H PRN (Reason: pain, moderate) Qty: 30 0RF Continued aspirin 81 mg Tablet,Chewable 81 mg PO QAM losartan 100 mg Tablet 150 mg PO QAM cholecalciferol (vitamin D3) [Vitamin D3] 25 mcg (1,000 unit) Tablet 25 mcg PO QAM Ocuvite Adult 50 Plus 250 mg (90 mg-160 mg) Capsule 1 cap PO QAM amlodipine benzoate 5 mg tablet 5 mg PO DAILY Discharge Orders: Discharge Order (Routine); Ordered 06/06/22 Ordered By: Armani Ahumada Admission Data Admit Date/Time: 06/03/22 12:45 Attending Provider: Armani Ahumada Admit Provider: Armani Ahumada Primary Care Provider: Pedrito Banegas Other Providers: Michelle Stanford ; Shaka Jones
[2022-06-06] MEDS: dexAMETHasone 6 MG in SYRINGE 0 ML IV SCH (08:34)
[2022-06-06] MEDS: LOSARTAN POTASSIUM 50 MG TAB PO SCH (08:34)
[2022-06-06] MEDS: ASPIRIN 81 MG ECTAB PO SCH (08:34)
[2022-06-06] MEDS: CHOLECALCIFEROL 1,000 UNITS 25 MCG TAB PO SCH (08:34)
[2022-06-06] MEDS: ZINC SULFATE 220 MG CAPSULE PO SCH (08:34)
== END 2022-06-06 11:56 | disposition home or self-care (01) | DRG 454 ==
LOC: ASU 08:19 → 3E 12:45